=== PATIENT | female | born 1995 | race Caucasian/White ===

== ENCOUNTER 2021-12-16 03:09 | Inpatient (IN) ==
[2021-12-16] MEDS ORDERED: OXYTOCIN 30 UNITS/500 ML BAG IV PRN ×3 (03:46→17:14)
[2021-12-16] MEDS ORDERED: BUPIVACAINE 0.25% 30 ML VIAL ONE ×3 (04:07→13:05)
[2021-12-16] MEDS ORDERED: ePHEDrine sulfate 50 MG/ML AMP ONE ×2 (04:07→13:05)
[2021-12-16] MEDS ORDERED: SODIUM CHLORIDE 0.9% INJ 10 ML VIAL ONE ×3 (04:07→13:05)
[2021-12-16] MEDS ORDERED: fentaNYL citrate 100 MCG/2 ML VIAL ONE ×3 (04:07→13:05)
[2021-12-16] MEDS ORDERED: fentaNYL 2MCG/ML ROPIVACAINE 1.25MG/ML 100 ML BAG EPI ONE ×2 (04:08→13:06)
[2021-12-16 04:14] LABS: Hematocrit (blood only) 37.7 % (37-47); Mean Corpuscular Hemoglobin 33.2 pg (25-34); Mean Corpuscular Volume 96.2 fL (80-100); Mean Platelet Volume 10.7 fL (7.4-10.4); Platelet Count 246 K/uL (130-400); Red Blood Count 3.92 M/uL (4.2-5.4); White Blood Count 11.29 K/uL (4.8-10.8)
[2021-12-16 04:15] LABS: Mean Corpuscular Hgb Conc 34.5 g/dL (32-36)
[2021-12-16] MEDS: LACTATED RINGER'S 1,000 ML IV PRN ×3 (04:15→11:37)
--- NOTE | 2021-12-16 05:23 | Anesthesiology Consultation ---
Date of Service December 16, 2021 Assessment & Plan Chart Review Chart Review: Acceptable Risk for Labor Epidural Consults Requested none History Height/Weight Height: 5 ft 2 in Weight: 85.275 kg Allergies Allergy/AdvReac Type Severity Reaction Status Date / Time No Known Drug Allergies Allergy Verified 12/12/21 11:17 Medications Home Medications Medication Instructions Recorded Confirmed Last Taken prenat.vits,dede,kra-trxu-pxeuo 1 tab PO DAILY 08/11/20 12/16/21 12/15/21 22:00 escitalopram oxalate 10 mg tablet 10 mg PO DAILY #90 tab 12/03/21 12/16/21 12/15/21 22:00 Active Medications Generic Name Dose Route Start Last Admin Trade Name Freq PRN Reason Stop Dose Admin Lactated Ringer's 1,000 mls @ 125 mls/hr 12/16/21 03:46 12/16/21 05:00 Lr IV 12/18/21 03:45 125 mls/hr .Q8H PRN Infusion L&D Protocol Protocol Past Medical History Medical History Anxiety Blighted ovum Palpitation Sinus tachycardia Vertigo Past Family History Family History Mother Heart disease, congenital Hypertension Father Kidney transplant recipient Pancreas transplanted Diabetes type I Grandfather (Maternal) Myocardial infarction Coronary heart disease Denies family history of Ovarian cancer Prostate cancer Breast cancer Colorectal cancer Past Surgical History Surgical History H/O dilation and curettage S/P wisdom tooth extraction Social History Smoking Status: Never smoker Hx Alcohol Use: Yes alcohol intake frequency: a few times a week Hx Substance Use: No substance use type: does not use Physical Exam Vital Signs Last Vital Signs Temp 36.7 C 12/16/21 04:06 Pulse 116 H 12/16/21 05:18 Resp 18 12/16/21 04:06 BP 140/83 12/16/21 05:20 Pulse Ox 99 12/16/21 05:18 Testing Laboratory Results 12/16/21 04:01
[2021-12-16] MEDS ORDERED: NALBUPHINE HCL INJ 10 MG/ML AMP IV PRN (05:24)
[2021-12-16] MEDS ORDERED: NALOXONE HCL 0.4 MG/1 ML VIAL/CARP IV PRN (05:24)
[2021-12-16] MEDS ORDERED: NALOXONE HCL 1 MG in SODIUM CHLORIDE 0.9% 1000ML 1,000 ML IV PRN (05:24)
[2021-12-16] MEDS ORDERED: ePHEDrine sulfate 50 MG/ML AMP IV PRN (05:24)
[2021-12-16] MEDS ORDERED: fentaNYL 2MCG/ML ROPIVACAINE 1.25MG/ML 100 ML BAG EPI PRN (05:24)
[2021-12-16] MEDS ORDERED: diphenhydrAMINE 50 MG/ML VIAL IV PRN (05:24)
--- NOTE | 2021-12-16 14:43 | History & Physical Report ---
Date of Service December 16, 2021 Assessment & Plan (1) Encounter for supervision of normal in multigravida: Plan: Patient admitted for active labor over the evening was admitted she had previous Covid in September test was not tested group B strep negative first baby 40 weeks and 4 days uncomplicated She was admitted 6 cm requested epidural after this artificial rupture membranes for clear fluid the patient progressed to fully dilated and then pushed her contractions somewhat spaced out in the Pitocin was started patient became uncomfortable and attempts were made to improve her epidural eventually her epidural was removed and replaced and this resulted in significantly better comfort for the patient.. At that time we let the patient rest The patient is now pushing again she has pushed for 3 hours and also rested for 1 hour after she became more comfortable she is currently pushing I discussed some of the issues with the patient at this time including statistically it becomes less probable for vaginal delivery the longer the second stage lasts and also the baby is developing some caput as well I discussed also if she becomes exhausted it may be difficult to proceed with vaginal delivery I did discuss the option of vacuum assistance certainly if It worsens this would not be an option also we discussed that if she was to thyroidectomy not be an option we did discuss the risks of vacuum including hematoma on the baby's head. Patient understands she will push for 30 more minutes and if not able to deliver on her own vaginally we will attempt vacuum the patient has had +1 is a baby to +2 with pushing there is no obvious O pelvic disproportion bladder was drained recently Admission and Anticipated Discharge Date Admission Date: December 16, 2021 History of Present Illness Primary Care Provider: Aminata Costa DO Allergies Allergy/AdvReac Type Severity Reaction Status Date / Time No Known Drug Allergies Allergy Verified 12/12/21 11:17 Home Medications Medication Instructions Recorded Confirmed Type prenat.vits,dede,dyv-xfkn-mkizf 1 tab PO DAILY 08/11/20 12/16/21 History escitalopram oxalate 10 mg tablet 10 mg PO DAILY #90 tab 12/03/21 12/16/21 Rx Patient History Medical History Anxiety Blighted ovum Palpitation Sinus tachycardia Vertigo Surgical History H/O dilation and curettage S/P wisdom tooth extraction Family History Mother Heart disease, congenital Hypertension Father Kidney transplant recipient Pancreas transplanted Diabetes type I Grandfather (Maternal) Myocardial infarction Coronary heart disease Denies family history of Ovarian cancer Prostate cancer Breast cancer Colorectal cancer Social History Smoking Status: Never smoker Second Hand Exposure: No; Hx Alcohol Use: Yes Hx Substance Use: No Preferred Language: Pashto Communication Ability: Effective Visual Impairment: No Limitations Hearing Ability: Normal Career Development Manager Required: No Beliefs That Will Affect Care: None marital status: marital status details: Sloan (26) [phone] Current Living Situation: Spouse Current Living Situation Comment: lives with spouse, and 2 dogs. current occupational status: employed current occupation: [employer] Feels Safe at Home: Yes Safety Concerns: Feels Safe At This Time Childhood Exposure to Second-Hand Smoke: No Diet Comment: regular caffeine: Yes (Coffee x 1-2 per day.) during the past year weight has: remained stable Dental Care, Regularly: No Physical Activity Frequency: 3-4 Times per Week Seatbelt Use: always Sunscreen Use: Yes Assistive Devices: None Results & Data ([facility]) Vital Signs (Past 12 Hours) Vital Signs Temp Pulse Resp BP Pulse Ox 12/16/21 14:41 130 H 97 12/16/21 14:38 126 H 82 L 12/16/21 14:36 121 H 99 12/16/21 14:31 144 H 98 12/16/21 14:26 123 H 99 12/16/21 14:25 109 H 91 12/16/21 14:24 105 H 148/88 H 12/16/21 14:21 96 H 100 12/16/21 14:19 114 H 93 12/16/21 14:16 94 H 97 12/16/21 14:11 96 H 98 12/16/21 14:08 86 136/67 12/16/21 14:06 87 97 12/16/21 14:01 94 H 20 98 12/16/21 13:56 101 H 98 12/16/21 13:55 86 135/67 12/16/21 13:51 92 H 98 12/16/21 13:46 102 H 99 12/16/21 13:41 102 H 99 12/16/21 13:36 105 H 131/67 98 12/16/21 13:31 105 H 135/63 99 12/16/21 13:30 18 12/16/21 13:26 110 H 97 12/16/21 13:25 108 H 20 127/62 12/16/21 13:23 107 H 129/71 12/16/21 13:21 104 H 20 130/89 98 12/16/21 13:16 107 H 96 12/16/21 13:11 103 H 20 130/72 95 12/16/21 13:10 114 H 83 L 12/16/21 13:07 112 H 126/67 12/16/21 13:06 108 H 89 L 12/16/21 13:04 108 H 89 L 12/16/21 13:01 111 H 140/72 96 12/16/21 13:00 24 12/16/21 12:59 111 H 93 12/16/21 12:56 117 H 96 12/16/21 12:55 130 H 136/67 12/16/21 12:53 114 H 139/70 12/16/21 12:51 111 H 133/70 95 12/16/21 12:49 109 H 136/72 12/16/21 12:47 107 H 143/79 H 12/16/21 12:46 113 H 97 12/16/21 12:45 24 12/16/21 12:40 110 H 96 12/16/21 12:39 106 H 139/71 12/16/21 12:35 104 H 96 12/16/21 12:32 114 H 91 12/16/21 12:30 104 H 22 100 12/16/21 12:27 96 H 89 L 12/16/21 12:25 110 H 96 12/16/21 12:24 100 H 144/74 H 12/16/21 12:20 112 H 99 12/16/21 12:15 120 H 97 12/16/21 12:10 114 H 142/74 H 87 L 12/16/21 12:08 110 H 93 12/16/21 12:04 102 H 96 12/16/21 12:03 102 H 83 L 12/16/21 12:00 22 12/16/21 11:59 109 H 97 12/16/21 11:56 110 H 91 12/16/21 11:54 123 H 153/81 H 97 12/16/21 11:49 111 H 97 12/16/21 11:45 105 H 20 90 12/16/21 11:44 101 H 95 12/16/21 11:39 101 H 139/64 98 12/16/21 11:38 113 H 93 12/16/21 11:34 106 H 98 12/16/21 11:30 111 H 20 85 L 12/16/21 11:28 106 H 99 12/16/21 11:24 99 H 142/73 H 12/16/21 11:23 112 H 96 12/16/21 11:18 99 H 78 L 12/16/21 11:16 106 H 94 12/16/21 11:15 22 12/16/21 11:13 106 H 73 L 12/16/21 11:11 110 H 89 L 12/16/21 11:09 123 H 115/58 L 12/16/21 11:08 105 H 84 L 12/16/21 11:05 98.1 F 20 12/16/21 11:03 104 H 97 12/16/21 10:59 112 H 89 L 12/16/21 10:58 103 H 98 12/16/21 10:54 111 H 91 12/16/21 10:53 100 H 97 12/16/21 10:48 96 H 96 12/16/21 10:47 104 H 90 12/16/21 10:45 20 12/16/21 10:43 111 H 97 12/16/21 10:40 104 H 92 12/16/21 10:39 109 H 124/75 12/16/21 10:38 117 H 96 12/16/21 10:35 110 H 90 12/16/21 10:33 106 H 96 12/16/21 10:30 20 12/16/21 10:28 112 H 97 12/16/21 10:24 108 H 116/91 12/16/21 10:23 115 H 97 12/16/21 10:19 116 H 92 12/16/21 10:18 114 H 96 12/16/21 10:15 22 12/16/21 10:13 105 H 97 12/16/21 10:09 100 H 145/64 H 04/17/22 10:08 112 H 98 12/16/21 10:07 123 H 91 12/16/21 10:03 108 H 98 12/16/21 10:02 109 H 92 12/16/21 10:00 20 12/16/21 09:58 98 H 98 12/16/21 09:53 102 H 99 12/16/21 09:48 104 H 98 12/16/21 09:45 111 H 92 12/16/21 09:43 101 H 99 12/16/21 09:38 107 H 98 12/16/21 09:37 102 H 158/90 H 12/16/21 09:36 105 H 155/116 H 12/16/21 09:33 97 H 98 12/16/21 09:30 100 H 20 142/96 H 12/16/21 09:28 96 H 98 12/16/21 09:25 93 H 135/80 12/16/21 09:23 89 98 12/16/21 09:21 97.9 F 12/16/21 09:19 96 H 145/76 H 12/16/21 09:18 100 H 98 12/16/21 09:17 90 146/69 H 12/16/21 09:15 99 H 167/75 H 12/16/21 09:13 93 H 142/80 H 98 12/16/21 09:12 93 H 143/77 H 12/16/21 09:10 95 H 147/90 H 12/16/21 09:09 99 H 140/88 12/16/21 09:08 93 H 99 12/16/21 09:03 96 H 141/88 H 99 12/16/21 09:00 20 12/16/21 08:58 102 H 99 12/16/21 08:53 99 H 98 12/16/21 08:48 95 H 98 12/16/21 08:47 101 H 133/86 12/16/21 08:43 88 98 12/16/21 08:38 98 H 98 12/16/21 08:33 94 H 98 12/16/21 08:32 95 H 129/83 12/16/21 08:30 18 12/16/21 08:28 93 H 98 12/16/21 08:23 100 H 98 12/16/21 08:19 93 H 134/83 12/16/21 08:18 98 H 98 12/16/21 08:13 94 H 98 12/16/21 08:08 91 H 98 12/16/21 08:03 94 H 136/79 99 12/16/21 08:00 20 12/16/21 07:58 124 H 97 12/16/21 07:53 90 97 12/16/21 07:48 84 121/70 98 12/16/21 07:43 91 H 97 12/16/21 07:38 85 98 12/16/21 07:33 82 119/73 98 12/16/21 07:30 20 12/16/21 07:28 87 98 12/16/21 07:23 86 99 12/16/21 07:18 93 H 106/57 L 98 12/16/21 07:13 96 H 98 12/16/21 07:08 104 H 98 12/16/21 07:05 98.4 F 20 12/16/21 07:03 100 H 139/91 99 12/16/21 06:58 104 H 99 12/16/21 06:53 93 H 97 12/16/21 06:48 105 H 97 12/16/21 06:47 89 123/79 12/16/21 06:43 94 H 97 12/16/21 06:38 98 H 96 12/16/21 06:33 92 H 124/77 98 12/16/21 06:28 93 H 97 12/16/21 06:23 88 97 12/16/21 06:18 92 H 125/75 97 12/16/21 06:13 94 H 97 12/16/21 06:08 106 H 97 12/16/21 06:03 108 H 98 12/16/21 06:02 99 H 117/71 12/16/21 06:01 16 12/16/21 05:58 88 97 12/16/21 05:53 101 H 99 12/16/21 05:49 102 H 117/74 12/16/21 05:48 103 H 99 12/16/21 05:43 93 H 99 12/16/21 05:38 92 H 99 12/16/21 05:33 107 H 99 12/16/21 05:32 107 H 115/69 12/16/21 05:30 109 H 18 121/73 12/16/21 05:28 118 H 120/69 100 12/16/21 05:26 107 H 127/79 12/16/21 05:25 18 12/16/21 05:24 117 H 118/68 12/16/21 05:23 115 H 99 12/16/21 05:20 18 140/83 12/16/21 05:18 116 H 133/77 99 12/16/21 05:16 113 H 129/78 12/16/21 05:15 18 12/16/21 05:14 117 H 124/76 12/16/21 05:13 118 H 99 12/16/21 05:12 123 H 134/76 12/16/21 05:10 113 H 137/89 12/16/21 05:08 104 H 141/91 H 99 12/16/21 05:06 97 H 133/89 12/16/21 05:04 83 129/86 12/16/21 05:03 94 H 99 12/16/21 04:58 106 H 99 12/16/21 04:53 97 H 100 12/16/21 04:06 98.1 F 18 12/16/21 03:49 96 H 149/90 H 12/16/21 03:37 102 H 146/92 H 12/16/21 03:27 109 H 160/94 H 12/16/21 03:25 98.1 F 18 Coding Level of Care Code None Diagnoses Encounter for supervision of normal in multigravida Z34.80
--- NOTE | 2021-12-16 15:37 | Delivery Summary ---
Vaginal Delivery Summary Date of Service December 16, 2021 Vaginal Delivery Summary Patient pushed for 3-1/2 hours with sitting maternal exhaustion I offered vacuum discussed risk benefits and alternatives patient agreed the vacuum discussed risks of hematoma on the head Station was +1 to +2 vacuum was applied over a total of 2 contractions and 1 pop-off the baby was delivered in occiput anterior position. We used a mighty VAC no torsional forces were applied and baby's head was delivered without difficulty vacuum was detached mouth and then nares were suctioned there was no nuchal cord fluid was clear at this time I was able to place a finger on the anterior shoulder on the posterior aspect of this and gently depressed this below the symphysis pubis then with maternal effort the baby was delivered live vigorous male infant cord clamped and cut cord gases obtained cord blood obtained placenta removed but the cord snapped and I was able to manually remove the placenta IV Pitocin started I made a small midline episiotomy to facilitate delivery with the vacuum this was repaired with 3-0 Vicryl sponge and instrument counts correct estimated blood loss 250 mL
[2021-12-16 15:46] LABS: Base Excess Cord Venous Blood -4.1 mEq/L (-7.7-1.9); Cord Venous Blood HCO3 21 mmol/L (18.4-26.8); Cord Venous Blood PCO2 39 mmHg (30.4-57.2); Cord Venous Blood PO2 30 mmHg (14.1-43.3); Cord Venous Blood pH 7.35 (7.20-7.44); O2 Saturation Cord Venous Bld 67.4 % (<68)
[2021-12-16 15:47] LABS: Base Excess Cord Arterial Bld -4.1 mEq/L (-9-1.8); CO2 Cord Arterial Blood 57 mmHg (39.1-73.5); HCO3 Cord Arterial Blood 24 mmol/L (19.7-28.5); PO2 Cord Arterial Blood 20 mmHg (4.1-31.7); pH Cord Arterial Blood 7.25 (7.1-7.38)
[2021-12-16 15:48] LABS: Oxygen Sat Cord Arterial Blood < 60.0 % (<60)
--- NOTE | 2021-12-16 15:56 | Anesthesia Procedure Note ---
Date of Service December 16, 2021 Anesthesia Post Epidural Note Vital Signs Vital Signs: Temp Pulse Resp BP Pulse Ox 98.1 F 160 H 20 127/71 99 12/16/21 11:05 12/16/21 15:54 12/16/21 14:55 12/16/21 15:54 12/16/21 15:36 Pain Intensity Abdomen: Pain Intensity: 8 Notes Mental Status: alert / awake / arousable and participated in evaluation Nausea / Vomiting: adequately controlled Pain: adequately controlled Airway Patency, RR, SpO2: stable & adequate BP & HR: stable & adequate Hydration State: stable & adequate Neuraxial Anesthesia: was administered and sensory block is resolving Anesthetic Complications: no major complications apparent and Pt Satisfied with anesthetic care Epidural: Removed without complications and With tip intact
[2021-12-16] MEDS ORDERED: HYDROCORTISONE ACETATE 25 MG SUPP PR PRN (17:14)
[2021-12-16] MEDS ORDERED: BENZOCAINE 20% AER SPR 82.5 GM CAN EXT PRN (17:14)
[2021-12-16] MEDS ORDERED: DIPHTHERIA/TETANUS/PERTUSSIS 0.5 ML SYR/VIAL IM ONE (17:14)
[2021-12-16] MEDS ORDERED: oxyCODONE/ACETAMINOPHEN 5mg/325mg TAB PO PRN (17:14)
[2021-12-16] MEDS ORDERED: bisacodyL 10 MG SUPP PR PRN (17:14)
[2021-12-16] MEDS ORDERED: ACETAMINOPHEN 325 MG TAB PO PRN (17:14)
[2021-12-16] MEDS: IBUPROFEN 600 MG TAB PO PRN (22:37)
[2021-12-16] MEDS: DOCUSATE SODIUM 100 MG CAP PO SCH (22:37)
[2021-12-17 06:28] LABS: Hematocrit (blood only) 21.7 % (37-47); Hemoglobin 7.5 g/dL (12.0-16.0); Mean Corpuscular Hemoglobin 32.6 pg (25-34); Mean Corpuscular Hgb Conc 34.6 g/dL (32-36); Mean Corpuscular Volume 94.3 fL (80-100); Mean Platelet Volume 10.3 fL (7.4-10.4); Platelet Count 171 K/uL (130-400); RDW Coefficient of Variation 13.4 % (11.5-14.5); RDW Standard Deviation 45.9 fL (36.4-46.3); White Blood Count 13.61 K/uL (4.8-10.8)
--- NOTE | 2021-12-17 06:48 | Obstetrical Progress Note ---
Date of Service <Luz FredyDO - Last Filed: 12/17/21 06:54> December 17, 2021 Assessment & Plan <Luz FredyDO - Last Filed: 12/17/21 06:54> (1) Encounter for care and examination after delivery: 26 yo post op day1 from , doing well. -Continue routine post care. -vital signs reviewed and WNL (Tmax 36.9) -Blood Type O+, GBS-, Rubella Immune -Encourage ambulation, monitor and control pain with Motrin, tylenol PRN, resume regular diet, monitor lochia -encourage breast feeding -hemoglobin 7.5 Day #:: 1 <Aakash Conway MD, FACOG - Last Filed: 12/17/21 06:56> (1) Encounter for care and examination after delivery: Subjective <Luz FredyDO - Last Filed: 12/17/21 06:54> Ambulation: ambulating normally Voiding: no voiding problems Passing Gas:: Yes Diet Tolerance:: regular diet Lochia:: Small Feeding Type:: breast feeding Current Pain Level(1-10): 0 Review of Systems Denies fever, chills, sweats Denies shortness of breath, difficulty breathing, chest pain, palpitations, chest pressure. Denies breast pain. Denies dysuria. Denies headache or changes in vision. Physical Exam <Luz Daniel - Last Filed: 12/17/21 06:54> General: Alert, oriented. No acute distress. Cardiac: Regular rate and rhythm, no murmurs/rubs/gallops. Respiratory: Clear to auscultation bilaterally a/p, no wheezes/rales/rhonchi. No increased work of breathing. Symmetrical chest rise. No respiratory distress. Abdomen: Soft, nontender, nondistended. Bowel sounds present. Uterus: Uterine fundus firm, palpable at umbilicus. Lower Extremities: No lower extremity edema or swelling. No deep calf pain. Amandeep's negative bilaterally.. Results & Data ([facility]) <Luz FredyDO - Last Filed: 12/17/21 06:54> Vital Signs (Past 12 Hours) Vital Signs Temp Pulse Pulse Resp BP BP Pulse Ox 12/17/21 04:16 36.9 C 77 18 128/77 98 04/18/22 00:00 37.1 C 98 H 20 135/86 97 12/16/21 21:30 97 H 18 135/88 12/16/21 21:15 90 20 136/89 12/16/21 20:15 36.6 C 103 H 18 138/91 98 12/16/21 19:00 37.1 C 18 12/16/21 18:58 101 H 122/71 <Aakash Conway MD, FACOG - Last Filed: 12/17/21 06:56> Co-Signing Physician Notes Resident Physician Supervision Note: I interviewed and examined the patient. Discussed with [Name of resident] and agree with findings and plan as documented in the note. Any exceptions or clarifications are listed here: [None] Documented By: Aakash Conway MD, FACOG Resident Activity Tracking <Luz Daniel DO - Last Filed: 12/17/21 06:54> Resident Involvement: Resident Care Provided Care Provided: Adult Hospital Medicine and OB Delivery
[2021-12-17] MEDS: DOCUSATE SODIUM 100 MG CAP PO SCH ×2 (08:19→21:53)
[2021-12-17] MEDS: PRENATAL VITAMIN 1 TAB PO SCH (08:19)
[2021-12-17] MEDS: ESCITALOPRAM OXALATE 10 MG TAB PO SCH (08:19)
[2021-12-17] MEDS: IBUPROFEN 600 MG TAB PO PRN ×2 (08:19→18:18)
[2021-12-17] MEDS ORDERED: NON-FORMULARY MEDICATION (Prenat.Vits,Cal,Min-Iron-Folic tablet) PO SCH (09:00)
[2021-12-17] MEDS ORDERED: bisacodyL 5 MG TABEC PO SCH (20:00)
[2021-12-18 06:57] LABS: Hematocrit (blood only) 20.1 % (37-47); Hemoglobin 6.8 g/dL (12.0-16.0)
[2021-12-18] MEDS ORDERED: SODIUM CHLORIDE 0.9% 250 ML IV PRN ×3 (07:12→09:14)
--- NOTE | 2021-12-18 07:39 | Obstetrical Progress Note ---
Date of Service <Luz DanielDO - Last Filed: 12/18/21 07:53> December 18, 2021 Assessment & Plan <Luz FredyDO - Last Filed: 12/18/21 07:53> (1) Encounter for care and examination after delivery: 26 yo post op day2 from , doing well. -Continue routine post care. -vital signs reviewed and WNL (Tmax 37.1) -Blood Type O+, GBS-, Rubella Immune -Encourage ambulation, monitor and control pain with Motrin, tylenol PRN, resume regular diet, monitor lochia -encourage breast feeding -hemoglobin 6.8 recieving 2U blood Day #:: 2 <Elliott Adame MD - Last Filed: 12/18/21 09:30> (1) Encounter for care and examination after delivery: Subjective <Luz FredyDO - Last Filed: 12/18/21 07:53> Ambulation: ambulating normally Voiding: no voiding problems Passing Gas:: Yes Diet Tolerance:: regular diet Lochia:: Small Feeding Type:: breast feeding Current Pain Level(1-10): 0 Review of Systems Denies fever, chills, sweats Denies shortness of breath, difficulty breathing, chest pain, palpitations, chest pressure. Denies breast pain. Denies dysuria. Denies headache or changes in vision. Physical Exam <Luz DanielDO - Last Filed: 12/18/21 07:53> General: Alert, oriented. No acute distress. Cardiac: Regular rate and rhythm, no murmurs/rubs/gallops. Respiratory: Clear to auscultation bilaterally a/p, no wheezes/rales/rhonchi. No increased work of breathing. Symmetrical chest rise. No respiratory distress. Abdomen: Soft, nontender, nondistended. Bowel sounds present. Uterus: Uterine fundus firm, palpable at umbilicus. Lower Extremities: No lower extremity edema or swelling. No deep calf pain. Amandeep's negative bilaterally.. Results & Data ([facility]) <Luz FredyDO - Last Filed: 12/18/21 07:53> Vital Signs (Past 12 Hours) Vital Signs Temp Pulse Resp BP 12/18/21 04:00 37.1 C 84 20 121/80 <Elliott Adame MD - Last Filed: 12/18/21 09:30> Co-Signing Physician Notes Patient was seen and evaluated and agree with the above findings and plan. Stable for discharge following completion of transfusion. Doing well. Resident Activity Tracking <Luz Daniel DO - Last Filed: 12/18/21 07:53> Resident Involvement: Resident Care Provided Care Provided: Adult Hospital Medicine and OB Delivery
[2021-12-18] MEDS: PRENATAL VITAMIN 1 TAB PO SCH (08:05)
[2021-12-18] MEDS: IBUPROFEN 600 MG TAB PO PRN ×2 (08:05→12:44)
[2021-12-18] MEDS: DOCUSATE SODIUM 100 MG CAP PO SCH (08:06)
[2021-12-18] MEDS: ESCITALOPRAM OXALATE 10 MG TAB PO SCH (08:06)
[2021-12-18 14:34] LABS: Hemoglobin 9.5 g/dL (12.0-16.0)
--- NOTE | 2021-12-20 08:55 | Discharge Summary ---
Date of Service December 20, 2021 Discharge Data Consultations 12/16/21 03:46 Consult Anesthesiology Stat Hospital Course (1) Encounter for care and examination after delivery: 26 yo post op day2 from [facility] , doing well. -Continue routine post care. -vital signs reviewed and WNL (Tmax 37.1) -Blood Type O+, GBS-, Rubella Immune -Encourage ambulation, monitor and control pain with Motrin, tylenol PRN, resume regular diet, monitor lochia -encourage breast feeding -hemoglobin 6.8 recieving 2U blood Patient was doing well at discharge after receiving 2 units of blood her anemia was thought to be related to hemorrhage she had a vacuum-assisted vaginal delivery and was doing well otherwise Coding Level of Care Code None Diagnoses Encounter for care and examination after delivery Z39.2
== END 2021-12-18 16:35 | disposition home or self-care (01) | DRG 807 ==
LOC: OPB 03:09 → 4S1 03:11 → 4E2 19:55